=== PATIENT | male | born 1985 | race African-American/Black ===

== ENCOUNTER 2018-01-29 11:13 | Emergency (ER) | payer OTHER ==
[~2018-01-29] VITALS: Ht 182.9 cm; Wt 90.7 kg
[2018-01-29 11:48] LABS: ABSOLUTE NEUTROPHILS 5.4 thou/uL (1.4-8.2); BASOPHILS 0.9 % (0.0-2.0); HEMATOCRIT 45.2 % (42.0-52.0); HEMOGLOBIN 15.8 gm/dL (14.0-18.0); LYMPHOCYTES 35.4 % (24.0-44.0); MCH 31.2 pg (26.0-34.0); MCHC 34.9 g/dL (28.0-37.0); MCV 89.5 fL (80.0-100.0); MONOCYTES 9.5 % (1.0-8.0); PLATELET COUNT 261 thou/uL (150-400); POLYS 51.2 % (36.0-66.0); RBC 5.05 mil/uL (4.50-6.00); RDW 13.3 % (10.5-14.5); WBC 10.5 thou/uL (4.0-11.0)
[2018-01-29 11:57] LABS: CALCIUM 9.4 mg/dL (8.5-10.1); CREATININE 1.3 mg/dL (0.7-1.3); POTASSIUM 3.6 mmol/L (3.5-5.1)
[2018-01-29 12:03] LABS: TOTAL BILIRUBIN 0.7 mg/dL (<0.1-1.0); TOTAL PROTEIN 7.6 g/dL (6.4-8.2)
== END 2018-01-29 12:40 | disposition home or self-care (01) ==
LOC: ER 11:13
PROVIDERS: Nurse Practitioner Family
DX: K64.4 Residual hemorrhoidal skin tags (principal); K62.5 Hemorrhage of anus and rectum